=== PATIENT | female | born 1990 | race Caucasian/White ===

== ENCOUNTER 2020-12-11 06:06 | Inpatient (IN) | payer OTHER ==
[~2020-12-11] VITALS: Ht 154.9 cm; Wt 75.7 kg
[2020-12-11] MEDS ORDERED: PRENATAL + DHA1 EAC1 PO (07:28)
[2020-12-11] MEDS ORDERED: IRON236 MG PO (08:04)
[2020-12-13] MEDS ORDERED: SURFAK240 M1 PO (19:00)
[2020-12-13] MEDS ORDERED: PERCOCET 5-3251 EACH PO (19:00)
== END 2020-12-13 19:10 | disposition home or self-care (01) | DRG 788 ==
LOC: LDR 06:06 → OB/GYN 06:06 → O/R 17:55 → OB/GYN 18:31 → SEC-K 20:01 → OB/GYN 20:04
PROVIDERS: ADMIT Specialist; ATTEND Specialist
PROC: 10907ZC Drainage of Amniotic Fluid, Therapeutic from Products of Conception, Via Natural or Artificial Opening (ICD-10-PCS; 2020-12-11)
PROC: 3E033VJ Introduction of Other Hormone into Peripheral Vein, Percutaneous Approach (ICD-10-PCS; 2020-12-11)
PROC: 4A1HXFZ Monitoring of Products of Conception, Cardiac Rhythm, External Approach (ICD-10-PCS; 2020-12-11)
PROC: 10D00Z1 Extraction of Products of Conception, Low, Open Approach (ICD-10-PCS; principal; 2020-12-11 15:00)
DX: O62.1 Secondary uterine inertia (principal); Z3A.39 39 weeks gestation of pregnancy; Z37.0 Single live birth; Z20.822 Contact with and (suspected) exposure to COVID-19

== ENCOUNTER 2022-03-20 13:32 | Emergency (ER) | payer OTHER ==
[~2022-03-20] VITALS: Ht 154.9 cm; Wt 60.3 kg
[~2022-03-20 13:32] MED LIST: IRON236 MG PO; PERCOCET 5-3251 EACH PO; PRENATAL + DHA1 EAC1 PO; SURFAK240 M1 PO
[2022-03-20] MEDS ORDERED: ZITHROMAX500 MG PO (16:10)
== END 2022-03-20 16:17 | disposition home or self-care (01) ==
LOC: ER 13:32
DX: B34.9 Viral infection, unspecified (principal); Z20.822 Contact with and (suspected) exposure to COVID-19

== ENCOUNTER 2022-06-24 04:19 | Emergency (ER) | payer OTHER ==
[~2022-06-24] VITALS: Ht 154.9 cm; Wt 60.3 kg
[~2022-06-24 04:19] MED LIST changes: +ZITHROMAX500 MG PO
== END 2022-06-24 08:57 | disposition home or self-care (01) ==
LOC: ER 04:19
DX: J02.9 Acute pharyngitis, unspecified (principal); J06.9 Acute upper respiratory infection, unspecified; Z20.828 Contact with and (suspected) exposure to other viral communicable diseases

== ENCOUNTER 2022-08-18 16:46 | Emergency (ER) | payer OTHER ==
[~2022-08-18] VITALS: Ht 170.2 cm; Wt 56.7 kg
== END 2022-08-18 21:13 | disposition home or self-care (01) ==
LOC: ER 16:46
DX: K52.9 Noninfective gastroenteritis and colitis, unspecified (principal)